=== PATIENT | female | born 1995 | race Caucasian/White ===

== ENCOUNTER 2025-04-16 16:40 | Emergency (ER) | payer SELFPAY ==
[~2025-04-16] VITALS: Ht 162.6 cm; Wt 63.0 kg
[2025-04-16 16:45] VITALS: O2SAT 99
[2025-04-16] MEDS ORDERED: IBUP-2029 MT (18:25)
[2025-04-16] MEDS ORDERED: BENZ1LOZ73 MT (18:25)
[2025-04-16] MEDS ORDERED: GUAI-450 MT (18:25)
[2025-04-16] MEDS: IBUPROFEN 600MG TABLET PO ONE (18:29)
[2025-04-16 19:05] VITALS: BP 106/66; PULSE 82; RESP 18; TEMP 36.7; O2SAT 100
[2025-04-16 20:42] LABS: INFLUENZA TYPE A Presumptive Negative (Pres. Neg.)
[2025-04-16 20:43] LABS: INFLUENZA TYPE B Presumptive Negative (Pres. Neg.)
== END 2025-04-16 19:20 | disposition home or self-care (01) ==
LOC: ER 16:40
DX: B34.9 Viral infection, unspecified (principal); Z90.49 Acquired absence of other specified parts of digestive tract; Z20.822 Contact with and (suspected) exposure to COVID-19
CPT/HCPCS: 81025; 87426; 87804; 99283